=== PATIENT | male | born 1965 | race Caucasian/White ===

== ENCOUNTER 2021-08-04 22:52 | Emergency (ER) | payer MEDICAID, OTHER ==
[~2021-08-04] VITALS: Ht 172.7 cm; Wt 61.2 kg
[2021-08-04 22:54] VITALS: BP 201/123
== END 2021-08-05 02:58 | disposition left against medical advice (07) ==
LOC: ER 22:55
DX: M25.512 Pain in left shoulder (principal); Z53.21 Procedure and treatment not carried out due to patient leaving prior to being seen by health care provider

== ENCOUNTER 2021-08-11 22:54 | Emergency (ER) | payer MEDICAID ==
[~2021-08-11] VITALS: Ht 172.7 cm; Wt 58.5 kg
[2021-08-11] MEDS ORDERED: ACETAMINOPHEN 650 mg PER 20.3 mL UD PO ONE (23:30)
[2021-08-11] MEDS ORDERED: amLODIPine BESYLATE 5 MG TAB PO ONE (23:30)
[2021-08-11] MEDS ORDERED: LORazepam 0.5 MG TAB PO ONE (23:30)
[2021-08-12 02:43] VITALS: BP 169/98
== END 2021-08-12 02:57 | disposition home or self-care (01) ==
LOC: ER 22:54
DX: S42.002A Fracture of unspecified part of left clavicle, initial encounter for closed fracture (principal); X58.XXXA Exposure to other specified factors, initial encounter; Y93.89 Activity, other specified; Y92.89 Other specified places as the place of occurrence of the external cause; Y99.8 Other external cause status
CPT/HCPCS: 29105; 71045; 73000

== ENCOUNTER 2021-08-24 10:26 | Emergency (ER) | payer MEDICAID ==
[~2021-08-24] VITALS: Ht 172.7 cm; Wt 56.7 kg
[2021-08-24 10:31] VITALS: BP 186/107
== END 2021-08-24 12:57 | disposition left against medical advice (07) ==
LOC: ER 10:26
DX: M25.512 Pain in left shoulder (principal); Z53.21 Procedure and treatment not carried out due to patient leaving prior to being seen by health care provider